=== PATIENT | female | born 1935 | race Caucasian/White ===

== ENCOUNTER 2024-02-13 06:15 | Inpatient (IN) | payer BC, OTHER ==
[2024-02-13 06:56] VITALS: BMI 23.3
[2024-02-13 08:55] LABS: EPITHELIAL CELLS 0-5 /hpf
[2024-02-13 09:04] LABS: HEMATOCRIT 40.8 % (32.4-45.2); HEMOGLOBIN 13.5 G/dL (10.7-15.3); MCH 30.4 pg (25.7-33.7); MCHC 33.1 g/dl (32.0-36.0); MEAN CELL VOLUME 91.8 fl (80-96); MEAN PLT VOLUME 8.7 fl (7.5-11.1); PLATELET COUNT 387.8 10^3/uL (134-434); RBC 4.44 10^6/uL (3.60-5.2); WHITE BLOOD COUNT 11.4 10^3/uL (4.0-10.8)
[2024-02-13 09:07] LABS: INR 1.29 (0.83-1.09); PROTHROMBIN TIME (PATIENT) 14.6 SEC (9.7-13.0)
[2024-02-13 09:34] LABS: ALBUMIN 4.2 g/dl (3.4-5.0); ALK PHOS 83 U/L (45-117); ANION GAP 11 mmol/L (4-13); BILIRUBIN,TOTAL 0.9 mg/dl (0.2-1); CALCIUM 9.7 mg/dl (8.5-10.1); CHLORIDE 92 mmol/L (98-107); CO2 22 mmol/L (21-32); CREATININE 0.7 mg/dl (0.6-1.3); GLUCOSE,RANDOM 108 mg/dl (74-106); POTASSIUM 3.8 mmol/L (3.5-5.1); SGOT/AST 23 U/L (15-37); SGPT/ALT 10 U/L (7-52); SODIUM 125 mmol/L (136-145)
[2024-02-13] MEDS: CEFTRIAXONE 1,000 MG in DEXTROSE 5%-WATER - 50 ML IVPB ONE (09:59)
[2024-02-13] MEDS: SODIUM CHLORIDE 0.9% 1000 ML INFUS.BAG IV ONE (09:59)
[2024-02-13] MEDS ORDERED: cefTRIAXone SODIUM 1 GM VIAL ONE (10:02)
[2024-02-13 10:28] LABS: PLATELET ESTIMATE ADEQUATE
[2024-02-13 13:12] LABS: CHOLESTEROL 138 mg/dL (50-200); HDL CHOLESTEROL 70 mg/dL (40-60); LDL CHOLESTEROL (ONLY DFH) 50 mg/dL (5-100)
[2024-02-13] MEDS: APIXABAN 5 MG TABLET PO SCH (21:10)
[2024-02-13] MEDS: ATORVASTATIN CA 20 MG TABLET (FP) PO SCH (21:10)
[2024-02-13] MEDS: ACETAMINOPHEN 325 MG TABLET (FP) PO PRN (21:10)
[2024-02-14] MEDS: LEVOTHYROXINE NA 150 MCG TABLET PO SCH (06:04)
[2024-02-14 09:01] LABS: ALBUMIN 3.8 g/dl (3.4-5.0); ALK PHOS 74 U/L (45-117); ANION GAP 12 mmol/L (4-13); BILIRUBIN,TOTAL 0.9 mg/dl (0.2-1); CALCIUM 9.4 mg/dl (8.5-10.1); CHLORIDE 94 mmol/L (98-107); CO2 22 mmol/L (21-32); CREATININE 0.7 mg/dl (0.6-1.3); GLUCOSE,RANDOM 101 mg/dl (74-106); POTASSIUM 3.5 mmol/L (3.5-5.1); SGOT/AST 17 U/L (15-37); SGPT/ALT 9 U/L (7-52); SODIUM 128 mmol/L (136-145); TOT PROT 6.5 g/dl (6.4-8.2)
[2024-02-14 09:08] LABS: BASO % 0.9 % (0-2.0); EOS % 0.4 % (0-4.5); HEMATOCRIT 35.8 % (32.4-45.2); HEMOGLOBIN 12.4 GM/dL (10.7-15.3); LYMPH % 7.9 % (8-40); MCH 30.9 pg (25.7-33.7); MCHC 34.5 g/dl (32.0-36.0); MEAN CELL VOLUME 89.6 fl (80-96); MEAN PLT VOLUME 8.3 fl (7.5-11.1); MONO % 7.9 % (3.8-10.2); NEUT % 82.9 % (42.8-82.8); PLATELET COUNT 383 10^3/uL (134-434); RBC 3.99 M/mm3 (3.60-5.2); RDW 12.9 % (11.6-15.6); WHITE BLOOD COUNT 11.5 K/mm3 (4.0-10.0)
[2024-02-14] MEDS ORDERED: FUROSEMIDE 40 MG TABLET (FP) PO SCH (10:00)
[2024-02-14] MEDS: CEFTRIAXONE 1 GM in DEXTROSE 5%-WATER - 50 ML IVPB SCH (10:03)
[2024-02-14] MEDS: DIGOXIN 0.125 MG TABLET PO SCH (10:03)
[2024-02-14] MEDS: LISINOPRIL 10 MG TABLET PO SCH (10:03)
[2024-02-14] MEDS: FUROSEMIDE 20 MG TABLET (FP) PO ONE (13:19)
[2024-02-15 14:34] LABS: HEMATOCRIT 38.9 % (32.4-45.2); MCH 30.9 pg (25.7-33.7); MCHC 33.3 g/dl (32.0-36.0); MEAN CELL VOLUME 92.7 fl (80-96); MEAN PLT VOLUME 7.9 fl (7.5-11.1); PLATELET COUNT 367.2 10^3/uL (134-434); RDW 13.9 % (11.6-15.6); WHITE BLOOD COUNT 14.1 10^3/uL (4.0-10.8)
[2024-02-15 14:51] LABS: CALCIUM 9.2 mg/dl (8.5-10.1); CREATININE 0.7 mg/dl (0.6-1.3); PHOSPHOROUS 3.8 (2.5-4.9); POTASSIUM 3.7 mmol/L (3.5-5.1)
[2024-02-16 14:38] LABS: HEMOGLOBIN 13.2 G/dL (10.7-15.3); MCH 30.5 pg (25.7-33.7); MEAN CELL VOLUME 92.3 fl (80-96); MEAN PLT VOLUME 7.8 fl (7.5-11.1); PLATELET COUNT 386.2 10^3/uL (134-434); RBC 4.33 10^6/uL (3.60-5.2); RDW 14.4 % (11.6-15.6); WHITE BLOOD COUNT 13.4 10^3/uL (4.0-10.8)
[2024-02-16 14:44] LABS: CALCIUM 9.4 mg/dl (8.5-10.1); CREATININE 0.8 mg/dl (0.6-1.3); POTASSIUM 3.7 mmol/L (3.5-5.1)
[2024-02-17] MEDS: MELATONIN 5 MG TABLETS PO PRN (00:52)
[2024-02-18] MEDS: POLYETHYLENE GLYCOL (HEALTHYLAX) 3350 17 GM PACKET PO PRN (09:52)
[2024-02-19 08:27] LABS: HEMATOCRIT 39.6 % (32.4-45.2); HEMOGLOBIN 12.9 G/dL (10.7-15.3); MCH 30.5 pg (25.7-33.7); MCHC 32.4 g/dl (32.0-36.0); MEAN PLT VOLUME 8.7 fl (7.5-11.1); PLATELET COUNT 423.6 10^3/uL (134-434); RBC 4.21 10^6/uL (3.60-5.2); RDW 13.6 % (11.6-15.6); WHITE BLOOD COUNT 10.3 10^3/uL (4.0-10.8)
[2024-02-19 10:02] LABS: CALCIUM 9.7 mg/dl (8.5-10.1); CREATININE 0.7 mg/dl (0.6-1.3); POTASSIUM 4.7 mmol/L (3.5-5.1)
[2024-02-20] MEDS: CEFUROXIME AXETIL 500 MG TABLET PO SCH (09:51)
[2024-02-20 14:13] VITALS: BP 131/72; PULSE 74; RESP 18; TEMP 98.9
== END 2024-02-20 14:55 | DRG 643 ==
LOC: FER 06:15 → FM/S 09:30 → OBSVTOIN 11:54 → FM/S 12:02
DX: E22.2 Syndrome of inappropriate secretion of antidiuretic hormone (principal); G93.41 Metabolic encephalopathy; N39.0 Urinary tract infection, site not specified; I10 Essential (primary) hypertension; I48.91 Unspecified atrial fibrillation; R26.81 Unsteadiness on feet; R29.6 Repeated falls; R00.2 Palpitations; E78.5 Hyperlipidemia, unspecified; B96.20 Unspecified Escherichia coli [E. coli] as the cause of diseases classified elsewhere; F41.0 Panic disorder [episodic paroxysmal anxiety]; Z96.649 Presence of unspecified artificial hip joint
CPT/HCPCS: 36415; 70450-TC; 71045-TC-FY; 80048; 80053; 80061; 80162; 81003; 81015; 82436; 82533; 83036; 83735; 83880; 83930; 83935; 84100; 84133; 84300; 84439; 84443; 84484; 85025; 85027; 85610; 86850; 86900; 86901; 87086; 87186; 87635; 93005; 93010; 93306-TC; 97116-GP; 97162-GP; 99285-25; G0378